=== PATIENT | female | born 1930 | race Caucasian/White ===

== ENCOUNTER 2018-09-04 06:48 | Emergency (ER) | payer OTHER, MEDICARE ==
[~2018-09-04] VITALS: Ht 175.3 cm; Wt 52.6 kg
[~2018-09-04 06:48] MED LIST: ASPIRIN EC81 M1 PO; AUGMENTIN 875875 MG PO; CITRATE OF MAG296 ML PO; COLACE100 MG PO; FLONASE 0.05%50 MCG NASAL; LEVAQUIN 500 M500 M2 PO; MIRALAX17 GM PO; PRAVACHOL 20 MG20 M1 PO; TRAMADOL 50 MG50 MG PO; XANAX 0.25 MG0.25 MG; ZOFRAN ODT4 MG PO; ZPAK PO
[2018-09-04] MEDS ORDERED: CYMBALTA20 MG PO (06:58)
[2018-09-04 07:30] LABS: BASOPHILS 0.6 % (0.0-2.0); EOSINOPHILS 2.5 % (0.0-3.0); HEMATOCRIT 40.8 % (37.0-47.0); HEMOGLOBIN 13.5 gm/dL (12.0-15.0); LYMPHOCYTES 31.5 % (24.0-44.0); MCH 29.1 pg (26.0-34.0); MCHC 33.1 g/dL (28.0-37.0); PLATELET COUNT 165 thou/uL (150-400); POLYS 57.4 % (36.0-66.0); RBC 4.64 mil/uL (4.20-5.00); RDW 14.2 % (10.5-14.5); WBC 5.3 thou/uL (4.0-11.0)
[2018-09-04 07:35] LABS: CREATININE 0.9 mg/dL (0.6-1.0); POTASSIUM 4.1 mmol/L (3.5-5.1)
[2018-09-04 07:41] LABS: ALBUMIN 3.6 g/dL (3.4-5.0); TOTAL BILIRUBIN 0.6 mg/dL (<0.1-1.0); TOTAL PROTEIN 6.8 g/dL (6.4-8.2)
[2018-09-04 08:49] LABS: URINE BILIRUBIN NEGATIVE (Negative); URINE BLOOD 2+ (Negative); URINE CLARITY CLEAR; URINE COLOR YELLOW; URINE GLUCOSE-RANDOM* NEGATIVE (Negative); URINE KETONES NEGATIVE (Negative); URINE NITRITE-REFLEX NEGATIVE (Negative); URINE PROTEIN (DIPSTICK) NEGATIVE (Negative); URINE UROBILINOGEN 0.2 E.U./dl (0.2-1.0)
[2018-09-04 08:50] LABS: URINE LEUKOCYTES-REFLEX 1+ (Negative)
[2018-09-04 08:58] LABS: CASTS None Seen /LPF (None Seen); CRYSTALS None Seen /LPF (None Seen); SQUAMOUS 0-3 Few /LPF (0-3)
[2018-09-04 08:59] LABS: BACTERIA-REFLEX 1-9 Few /HPF (None Seen); URINE RBC 0-2 Rare /HPF (0-2); URINE WBC-REFLEX 0-5 Rare /HPF (0-5)
[2018-09-04 09:22] VITALS: BP 133/54
== END 2018-09-04 09:20 | disposition home or self-care (01) ==
LOC: ER
PROVIDERS: Emergency Medicine
DX: K62.5 Hemorrhage of anus and rectum (principal); K59.00 Constipation, unspecified; M79.7 Fibromyalgia; K21.9 Gastro-esophageal reflux disease without esophagitis; Z88.5 Allergy status to narcotic agent; Z90.89 Acquired absence of other organs; Z90.710 Acquired absence of both cervix and uterus; Z90.49 Acquired absence of other specified parts of digestive tract